=== PATIENT | male | born 1990 | race Two or more races ===

== ENCOUNTER 2020-12-05 09:25 | Emergency (ER) | payer OTHER ==
[~2020-12-05] VITALS: Ht 170.2 cm; Wt 150.0 kg
[2020-12-05 10:38] VITALS: BP 148/83
[2020-12-05] MEDS ORDERED: IBUPROFEN 600 MG TABLET PO ONE (10:45)
[2020-12-05] MEDS ORDERED: ACETAMINOPHEN 500 MG TABLET PO ONE (10:45)
== END 2020-12-05 11:57 | disposition home or self-care (01) ==
LOC: EMS 09:33
DX: S93.401A Sprain of unspecified ligament of right ankle, initial encounter (principal); W01.0XXA Fall on same level from slipping, tripping and stumbling without subsequent striking against object, initial encounter; Y93.01 Activity, walking, marching and hiking; Y92.89 Other specified places as the place of occurrence of the external cause; Y99.8 Other external cause status
CPT/HCPCS: 99283